=== PATIENT | male | born 1950 | race Two or more races ===

== ENCOUNTER 2016-10-17 11:10 | Emergency (ER) | payer MEDICARE, OTHER ==
[~2016-10-17] VITALS: Ht 167.6 cm; Wt 80.7 kg
[2016-10-17] MEDS ORDERED: cloNIDine HCL 0.1 MG TAB PO ONE (12:00)
[2016-10-17 12:17] LABS: Potassium 3.6 mmol/L (3.5-5.1)
[2016-10-17 12:20] LABS: Basophils # (auto) 0 uL; Basophils % (auto) 0.3 % (0.0-2.0); Eosinophils # (auto) 0.1 uL; Eosinophils % (auto) 1.2 % (0.0-7.0); Hematocrit 47.7 % (41.0-53.0); Hemoglobin 15.2 g/dL (13.5-17.5); Lymphocytes # (auto) 2.4 uL; Lymphocytes % (auto) 23.2 % (10.0-50.0); Mean Corpuscular Hemoglobin 28.6 pg (28.0-32.0); Mean Corpuscular Hgb Conc. 31.8 g/dL (32.0-36.0); Mean Corpuscular Volume 89.9 fL (80.0-100.0); Mean Platelet Volume 7.2 fL (7.4-10.4); Monocytes # (auto) 0.6 uL; Neutrophils # (auto) 7.1 uL; Neutrophils % (auto) 69.3 % (37.0-80.0); Platelet Count (auto) 330 10^3/uL (140-450); White Blood Cell 10.3 10^3/uL (4.4-10.8)
[2016-10-17 12:21] LABS: Albumin 3.9 g/dL (3.4-5.0); BUN/Creatinine Ratio 19.2; Calcium 8.7 mg/dL (8.5-10.1)
[2016-10-17 12:24] LABS: Bilirubin, Total 0.5 mg/dL (0.2-1.0); Total Protein 7.9 g/dL (6.4-8.2)
[2016-10-17 12:49] LABS: INR 1.08 (0.9-1.15); Partial Thromboplastin Time 25.7 sec (22.64-33.71); Prothrombin Time 11.1 sec (9.37-12.3)
[2016-10-17 13:42] VITALS: BP 138/80
== END 2016-10-17 15:11 | disposition home or self-care (01) ==
LOC: ER 11:10
DX: I16.0 Hypertensive urgency (principal); J45.909 Unspecified asthma, uncomplicated; E11.9 Type 2 diabetes mellitus without complications; K21.9 Gastro-esophageal reflux disease without esophagitis; M10.9 Gout, unspecified; E78.5 Hyperlipidemia, unspecified; I10 Essential (primary) hypertension; I25.2 Old myocardial infarction
CPT/HCPCS: 36415; 70450; 71010; 80053; 83735; 84484; 85025; 85610; 85730; 93005; 94761; 99285; J7030

== ENCOUNTER 2019-12-25 08:25 | Emergency (ER) | payer MEDICARE ==
[~2019-12-25] VITALS: Ht 167.6 cm; Wt 81.6 kg
[2019-12-25] MEDS ORDERED: methylPREDNISolone SOD SUCC 125 MG/2 ML VL IV ONE (09:00)
[2019-12-25] MEDS ORDERED: IPRATROPIUM BROM 0.5 MG/2.5ML INH SOL NEB ONE (09:00)
[2019-12-25] MEDS ORDERED: cloNIDine HCL 0.1 MG TAB PO ONE (09:00)
[2019-12-25] MEDS ORDERED: ALBUTEROL SULF 2.5 MG/0.5ML(0.5%) NEB SOLN NEB ONE (09:00)
[2019-12-25 09:06] LABS: Basophils # (auto) 0.1 10 ^3/uL (0-0.2); Basophils % (auto) 0.8 % (0.0-2.0); Eosinophils # (auto) 0.3 10 ^3/uL (0-0.8); Eosinophils % (auto) 4.5 % (0.0-7.0); Hematocrit 41.5 % (41.0-53.0); Lymphocytes % (auto) 25.7 % (10.0-50.0); Mean Corpuscular Hgb Conc. 33.8 g/dL (32.0-36.0); Mean Corpuscular Volume 88.7 fL (80.0-100.0); Monocytes # (auto) 0.5 10 ^3/uL (0-1.3); Monocytes % (auto) 6.7 % (0.0-12.0); Neutrophils # (auto) 4.8 10 ^3/uL (1.6-8.6); Neutrophils % (auto) 62.3 % (37.0-80.0); Nucleated Red Blood Cells % 0.1 %; Platelet Count (auto) 260 10^3/uL (140-450); Red Blood Cells 4.68 10^6/uL (4.5-5.90); Red Cell Distribution Width 13.3 % (11.8-14.3); White Blood Cell 7.6 10^3/uL (4.4-10.8)
[2019-12-25 09:21] LABS: Albumin 3.5 g/dL (3.4-5.0); Anion Gap 9 (5-15); Blood Urea Nitrogen 14 mg/dL (7-18); Calcium 8.7 mg/dL (8.5-10.1); Carbon Dioxide 27 mmol/L (21-32); Chloride 106 mmol/L (98-107); Glucose 171 mg/dL (74-106); Potassium 3.6 mmol/L (3.5-5.1); Sodium 142 mmol/L (136-145)
[2019-12-25 09:26] LABS: Alanine Aminotransferase 15 U/L (16-61); Alkaline Phosphatase 71 U/L (45-117); Aspartate Aminotransferase 11 U/L (15-37); BUN/Creatinine Ratio 13.9; Bilirubin, Total 0.4 mg/dL (0.2-1.0); GFR African American 94 mL/min; GFR Non-African American 78 mL/min; Total Protein 7.1 g/dL (6.4-8.2)
[2019-12-25] MEDS ORDERED: hydrALAZINE HCL 20 MG/ML VL ONE (09:33)
[2019-12-25] MEDS ORDERED: hydrALAZINE HCL 20 MG/ML VL IV ONE (09:45)
[2019-12-25 10:59] VITALS: BP 166/93
== END 2019-12-25 11:18 | disposition home or self-care (01) ==
LOC: ER 08:25
DX: H11.32 Conjunctival hemorrhage, left eye (principal); H05.012 Cellulitis of left orbit; J45.901 Unspecified asthma with (acute) exacerbation; I16.0 Hypertensive urgency; I25.10 Atherosclerotic heart disease of native coronary artery without angina pectoris; E11.9 Type 2 diabetes mellitus without complications; K21.9 Gastro-esophageal reflux disease without esophagitis; M10.9 Gout, unspecified; E78.5 Hyperlipidemia, unspecified; I10 Essential (primary) hypertension
CPT/HCPCS: 36415; 70486; 71045; 80053; 84484; 85025; 93005; 94640; 96374; 96375; 99285; J0360; J2930; J7644

== ENCOUNTER 2020-05-06 11:40 | Emergency (ER) | payer MEDICARE ==
[~2020-05-06] VITALS: Ht 167.6 cm; Wt 77.1 kg
[2020-05-06 11:45] VITALS: BP 136/82
[2020-05-06 12:47] LABS: Basophils # (auto) 0 10 ^3/uL (0-0.2); Basophils % (auto) 0.3 % (0.0-2.0); Eosinophils # (auto) 0.1 10 ^3/uL (0-0.8); Eosinophils % (auto) 0.6 % (0.0-7.0); Hematocrit 42.5 % (41.0-53.0); Hemoglobin 14.2 g/dL (13.5-17.5); Lymphocytes # (auto) 1.7 10 ^3/uL (0.4-5.4); Lymphocytes % (auto) 18.8 % (10.0-50.0); Mean Corpuscular Hgb Conc. 33.4 g/dL (32.0-36.0); Mean Corpuscular Volume 89.8 fL (80.0-100.0); Monocytes # (auto) 0.4 10 ^3/uL (0-1.3); Monocytes % (auto) 4.5 % (0.0-12.0); Neutrophils # (auto) 6.9 10 ^3/uL (1.6-8.6); Neutrophils % (auto) 75.8 % (37.0-80.0); Platelet Count (auto) 260 10^3/uL (140-450); Red Blood Cells 4.73 10^6/uL (4.5-5.90); Red Cell Distribution Width 13.6 % (11.8-14.3)
[2020-05-06 13:04] LABS: Alanine Aminotransferase 18 U/L (16-61); Albumin 3.7 g/dL (3.4-5.0); Anion Gap 5 (5-15); Aspartate Aminotransferase 8 U/L (15-37); BUN/Creatinine Ratio 12.9; Blood Urea Nitrogen 12 mg/dL (7-18); Calcium 8.9 mg/dL (8.5-10.1); Carbon Dioxide 27 mmol/L (21-32); Chloride 106 mmol/L (98-107); GFR African American 104 mL/min; GFR Non-African American 86 mL/min; Glucose 183 mg/dL (74-106); Potassium 3.9 mmol/L (3.5-5.1); Sodium 138 mmol/L (136-145)
[2020-05-06 13:10] LABS: Alkaline Phosphatase 78 U/L (45-117); Bilirubin, Total 0.6 mg/dL (0.2-1.0); Total Protein 7.5 g/dL (6.4-8.2)
== END 2020-05-06 17:00 | disposition left against medical advice (07) ==
LOC: ER 11:40
DX: R10.13 Epigastric pain (principal); Z53.21 Procedure and treatment not carried out due to patient leaving prior to being seen by health care provider
CPT/HCPCS: 36415; 80053; 84484; 85025; 93005

== ENCOUNTER 2020-05-10 16:22 | Inpatient (IN) | payer MEDICARE ==
[~2020-05-10] VITALS: Ht 167.6 cm; Wt 75.3 kg
[2020-05-10] MEDS ORDERED: ONDANSETRON HCL 4 MG/2 ML VIAL IV ONE ×2 (17:15→20:15)
[2020-05-10] MEDS ORDERED: NITROGLYCERIN 0.4 MG SL TAB SL ONE (17:15)
[2020-05-10] MEDS ORDERED: MORPHINE SULF INJ 2 MG/ML SYRINGE 1ML IV ONE (17:15)
[2020-05-10 18:21] LABS: Alanine Aminotransferase 18 U/L (16-61); Albumin 3.1 g/dL (3.4-5.0); Anion Gap 6 (5-15); Aspartate Aminotransferase 11 U/L (15-37); BUN/Creatinine Ratio 15.2; Blood Urea Nitrogen 12 mg/dL (7-18); Calcium 7.3 mg/dL (8.5-10.1); Carbon Dioxide 23 mmol/L (21-32); Chloride 112 mmol/L (98-107); GFR African American 125 mL/min; GFR Non-African American 103 mL/min; Glucose 168 mg/dL (74-106); Magnesium 1.9 mg/dL (1.6-2.6); Potassium 3.2 mmol/L (3.5-5.1); Sodium 141 mmol/L (136-145)
[2020-05-10 18:26] LABS: Alkaline Phosphatase 68 U/L (45-117); Bilirubin, Total 0.5 mg/dL (0.2-1.0); Total Protein 6.3 g/dL (6.4-8.2)
[2020-05-10 18:34] LABS: INR 1.05 (0.9-1.15); Partial Thromboplastin Time 25.6 sec (23.0-31.2)
[2020-05-10 18:35] LABS: Basophils # (auto) 0 10 ^3/uL (0-0.2); Basophils % (auto) 0.6 % (0.0-2.0); Eosinophils # (auto) 0.1 10 ^3/uL (0-0.8); Eosinophils % (auto) 1.2 % (0.0-7.0); Hematocrit 42.4 % (41.0-53.0); Hemoglobin 14.5 g/dL (13.5-17.5); Lymphocytes # (auto) 2.1 10 ^3/uL (0.4-5.4); Lymphocytes % (auto) 26.5 % (10.0-50.0); Mean Corpuscular Hemoglobin 30.7 pg (28.0-32.0); Mean Corpuscular Hgb Conc. 34.1 g/dL (32.0-36.0); Mean Corpuscular Volume 90.1 fL (80.0-100.0); Monocytes # (auto) 0.6 10 ^3/uL (0-1.3); Monocytes % (auto) 7.2 % (0.0-12.0); Neutrophils # (auto) 5.2 10 ^3/uL (1.6-8.6); Neutrophils % (auto) 64.5 % (37.0-80.0); Nucleated Red Blood Cells % 0.1 %; Platelet Count (auto) 257 10^3/uL (140-450); Red Blood Cells 4.71 10^6/uL (4.5-5.90); Red Cell Distribution Width 13.5 % (11.8-14.3)
[2020-05-10] MEDS ORDERED: MORPHINE SULFATE 4 MG/ML SYR/VIAL IV ONE (20:15)
[2020-05-10] MEDS ORDERED: POTASSIUM CHL 20 Meq TABLET PO ONE (20:15)
[2020-05-10] MEDS ORDERED: cloNIDine HCL 0.1 MG TAB PO ONE (20:15)
[2020-05-10] MEDS ORDERED: MORPHINE SULF INJ 2 MG/ML SYRINGE 1ML IV PRN (21:00)
[2020-05-10] MEDS ORDERED: DEXTROSE (50%) 50ML SYRG IV PRN (21:00)
[2020-05-10] MEDS ORDERED: NITROGLYCERIN 0.4 MG SL TAB SL PRN (21:00)
[2020-05-10] MEDS: NIFEdipine ER 30 MG TAB PO SCH (21:46)
[2020-05-10] MEDS: CARVEDILOL 3.125 MG TAB PO SCH (22:00)
[2020-05-10 22:33] LABS: Urine Bacteria FEW /hpf (None Seen); Urine Blood Negative /uL (Negative); Urine Mucus FEW (None Seen); Urine Specific Gravity 1.012 (1.001-1.035); Urine WBC <1 /hpf (0 - 3)
[2020-05-10 23:33] VITALS: BP 151/87
--- NOTE | 2020-05-10 23:33 | NUR ---
Telemetry admit from ER DULCE QUINTEROS admitted to Telemetry unit. Patient oriented to CORDELL PABLO RN primary RN, unit, room, bed, and unit policies regarding patient care and visiting hours. Patient now on continuous telemetry monitoring, tele box #[id number] and telemetry reading on arrival to unit is Sinus Jacob. Patient placed on bedside oxygen, weighed by bedscale and encouraged to call if they need something. All questions and concerns addressed, patient verbalized understanding.
[2020-05-11] MEDS: ATORVASTATIN 20 MG TAB PO SCH ×2 (00:15→21:35)
[2020-05-11] MEDS: ACCU-CHEK COMFORT CURVE STRIP VI SCH ×7 (00:15→23:45)
[2020-05-11] MEDS ORDERED: ALLO300T2 PO (00:23)
[2020-05-11] MEDS ORDERED: HYDR-4833 PO (00:23)
[2020-05-11] MEDS ORDERED: PRAV20TA3 PO (00:23)
[2020-05-11] MEDS ORDERED: INSLANTI SC (00:23)
[2020-05-11] MEDS ORDERED: ASPI-543 PO (00:23)
[2020-05-11] MEDS ORDERED: MONT10TA34 PO (00:23)
[2020-05-11] MEDS ORDERED: PANT40TA2 PO (00:23)
[2020-05-11] MEDS ORDERED: CAR125T OR (00:23)
[2020-05-11] MEDS: ACETAMINOPHEN 325 MG TAB PO PRN (02:19)
--- NOTE | 2020-05-11 02:20 | NUR ---
PATIENT C/O HEADACHE @ 01/21, MEDICATED PATIENT ORDERED.
[2020-05-11] MEDS: InsuLIN REG 1unit/0.01ml Soln (100units/ml) SC SCH ×7 (04:00→23:45)
[2020-05-11 05:00] VITALS: BP 164/83
--- NOTE | 2020-05-11 05:29 | NUR ---
Called/paged Dr. Enriquez called re: High Blood pressure . Waiting for call back. Continue care.
--- NOTE | 2020-05-11 06:02 | NUR ---
Re-Called/paged Dr. Enriquez re-called re: high blood pressure. Waiting for call back. Continue care.
[2020-05-11] MEDS: ONDANSETRON HCL 4 MG/2 ML VIAL IV PRN (06:26)
--- NOTE | 2020-05-11 06:32 | NUR ---
returned call Dr. Enriquez returned call, updated on patient status and reason for call, No new orders. Continue care.
[2020-05-11 07:13] LABS: Basophils # (auto) 0.1 10 ^3/uL (0-0.2); Basophils % (auto) 0.7 % (0.0-2.0); Eosinophils # (auto) 0.2 10 ^3/uL (0-0.8); Eosinophils % (auto) 1.7 % (0.0-7.0); Hemoglobin 15.9 g/dL (13.5-17.5); Lymphocytes # (auto) 1.9 10 ^3/uL (0.4-5.4); Lymphocytes % (auto) 20.7 % (10.0-50.0); Mean Corpuscular Hemoglobin 30.3 pg (28.0-32.0); Mean Corpuscular Hgb Conc. 33.8 g/dL (32.0-36.0); Mean Corpuscular Volume 89.9 fL (80.0-100.0); Monocytes # (auto) 0.7 10 ^3/uL (0-1.3); Monocytes % (auto) 7.1 % (0.0-12.0); Neutrophils # (auto) 6.4 10 ^3/uL (1.6-8.6); Neutrophils % (auto) 69.8 % (37.0-80.0); Platelet Count (auto) 268 10^3/uL (140-450); Red Blood Cells 5.23 10^6/uL (4.5-5.90); Red Cell Distribution Width 13.8 % (11.8-14.3); White Blood Cell 9.2 10^3/uL (4.4-10.8)
[2020-05-11 07:21] LABS: Potassium 3.6 mmol/L (3.5-5.1)
[2020-05-11 07:29] LABS: BUN/Creatinine Ratio 10.5; Calcium 8.7 mg/dL (8.5-10.1)
--- NOTE | 2020-05-11 07:30 | NUR ---
Opening Shift Note Assuming care of patient at this time. Patient is awake and alert. Patient shows no signs or symptoms of distress or shortness of breath. Bed is locked and lowered with side rails up x2. Instructed patient on the plan of care for today and to call for assistance as needed. Call light within reach. Will continue to round hourly and as needed.
[2020-05-11] MEDS: CARVEDILOL 3.125 MG TAB PO SCH (08:41)
[2020-05-11] MEDS: CLOPIDOGREL BISULFATE 75 MG TAB PO SCH (08:42)
[2020-05-11] MEDS: NIFEdipine ER 30 MG TAB PO SCH (08:43)
[2020-05-11] MEDS: LISINOPRIL 20 MG TAB PO SCH (08:44)
[2020-05-11] MEDS: ASPirin 81 mg TAB PO SCH (08:45)
[2020-05-11] MEDS: DOCUSATE SOD 100 MG CAP PO SCH (08:46)
[2020-05-11 09:00] VITALS: BP 179/91
[2020-05-11] MEDS ORDERED: PANTOPRAZOLE 40 MG TAB PO SCH ×2 (11:09→22:00)
[2020-05-11] MEDS: cloNIDine HCL 0.1 MG TAB PO PRN (13:18)
--- NOTE | 2020-05-11 13:20 | NUR ---
Cardio Consult Cardio Consult done at this time by Lilli Go NP.
[2020-05-11 14:00] VITALS: BP 162/99
[2020-05-11 17:00] VITALS: BP 127/94
[2020-05-11] MEDS ORDERED: SUCRALFATE 1 GM/10 ML ORAL SUSP PO SCH (17:00)
--- NOTE | 2020-05-11 17:30 | NUR ---
Stress Test Patient had part one of stress test today.
[2020-05-11] MEDS: SUCRALFATE 1 GM/10 ML ORAL SUSP PO SCH ×2 (17:49→20:34)
--- NOTE | 2020-05-11 18:57 | NUR ---
Closing Shift Note Patient resting in bed. No distress noted. Will endorse care to the awake overnight monitor RN.
--- NOTE | 2020-05-11 19:40 | NUR ---
Opening Shift Note Assumed care of patient, awake and alert. No S/S of distress/SOB or pain. Instructed on POC and to call for assist PRN. Bed in lowest locked position, call light within reach, side rails up x2. Will continue to monitor for changes Q1hr and PRN.
[2020-05-11] MEDS: PANTOPRAZOLE 40 MG TAB PO SCH (20:34)
[2020-05-11 21:58] VITALS: BP 135/91
--- NOTE | 2020-05-12 00:38 | NUR ---
Endorsed care Care endorsed to Sylvia EDUARDO.
--- NOTE | 2020-05-12 00:45 | NUR ---
Assumed care of pt Pt is sleeping in bed, 2L NC in place, with even and unlabored respirations. Will continue to monitor Q1Hr and PRN
[2020-05-12] MEDS: InsuLIN REG 1unit/0.01ml Soln (100units/ml) SC SCH ×6 (04:00→23:40)
[2020-05-12] MEDS: ACCU-CHEK COMFORT CURVE STRIP VI SCH ×6 (04:08→23:39)
[2020-05-12] MEDS: ACETAMINOPHEN 325 MG TAB PO PRN ×3 (04:08→17:25)
[2020-05-12 04:49] VITALS: BP 157/100
[2020-05-12] MEDS: SUCRALFATE 1 GM/10 ML ORAL SUSP PO SCH ×4 (06:21→20:44)
--- NOTE | 2020-05-12 07:30 | NUR ---
Opening Shift Note Assumed care of patient, awake, alert, and oriented. No S/S of distress/SOB or pain. Bed in lowest/locked position, bed rails up x2, call light within reach. Instructed on POC and to call for assist PRN. Will continue to monitor for changes Q1hr and PRN.
[2020-05-12 09:00] VITALS: BP 155/97
[2020-05-12] MEDS: NIFEdipine ER 30 MG TAB PO SCH (10:11)
[2020-05-12] MEDS: PANTOPRAZOLE 40 MG TAB PO SCH ×2 (10:12→20:44)
[2020-05-12] MEDS: ASPirin 81 mg TAB PO SCH (10:12)
[2020-05-12] MEDS: ISOSORBIDE MONONITRATE ER 60 MG TAB PO SCH (10:12)
[2020-05-12] MEDS: CLOPIDOGREL BISULFATE 75 MG TAB PO SCH (10:12)
[2020-05-12] MEDS: DOCUSATE SOD 100 MG CAP PO SCH (10:12)
[2020-05-12] MEDS: LISINOPRIL 20 MG TAB PO SCH (10:13)
[2020-05-12 12:42] VITALS: BP 139/91
[2020-05-12] MEDS ORDERED: ALUM & MAG HYDROX-SIMETH LIQ(MAALOX) 30 ML PO ONE (14:45)
--- NOTE | 2020-05-12 16:03 | NUR ---
REPORT ENDORSED CARE TO ALESHA SAXENA
[2020-05-12 17:00] VITALS: BP 131/92
--- NOTE | 2020-05-12 18:51 | NUR ---
CARE ENDORSED TO NOC RN.
[2020-05-12 20:00] VITALS: BP 146/93
[2020-05-12] MEDS: ATORVASTATIN 20 MG TAB PO SCH (20:44)
--- NOTE | 2020-05-12 22:10 | NUR ---
MD Called/paged Patient complains of headache 06/23 and states tylenol has not helped. Hospitalist paged, Waiting for call back. Continue care.
[2020-05-12] MEDS ORDERED: PROPRANOLOL HCL 20 MG TAB PO ONE (22:15)
--- NOTE | 2020-05-12 22:20 | NUR ---
HOSPITALIST Dr. Cesario Enriquez returned call, updated on patient status and reason for call, orders received. Will note new orders and continue to monitor
[2020-05-12 22:47] VITALS: BP 146/93
[2020-05-13] MEDS: ACETAMINOPHEN 325 MG TAB PO PRN (00:59)
[2020-05-13] MEDS: ONDANSETRON HCL 4 MG/2 ML VIAL IV PRN (01:00)
[2020-05-13] MEDS: ACCU-CHEK COMFORT CURVE STRIP VI SCH ×5 (03:55→20:03)
[2020-05-13] MEDS: InsuLIN REG 1unit/0.01ml Soln (100units/ml) SC SCH ×5 (03:56→20:18)
[2020-05-13] MEDS: cloNIDine HCL 0.1 MG TAB PO PRN (04:23)
--- NOTE | 2020-05-13 04:23 | NUR ---
Patient states he "doesn't feel well" and states that he thinks it is because he stopped taking his home medication Oxcarbazepine. Patient states this is the medication he takes for the "zaps" that he feels but could not explain furthur what "zaps" are and can not remember. Patient states that he stopped taking this medication at home because he was feeling better but verbalizes that he would like to start taking it again and thinks this is why he does not feel well. Will update med rec with medication and dosage given by patient.
[2020-05-13] MEDS ORDERED: OXCA600T3 PO (04:29)
[2020-05-13 05:22] VITALS: BP 154/93
[2020-05-13] MEDS: SUCRALFATE 1 GM/10 ML ORAL SUSP PO SCH ×4 (06:22→22:09)
--- NOTE | 2020-05-13 08:10 | NUR ---
MD ROUNDS DR Leonardo ALVAERZ AT BEDSIDE DISCUSSING POC WITH PATIENT. NEW ORDERS RECEIVED/WILL CARRY OUT. WILL CONTINUE TO MONITOR
[2020-05-13] MEDS: PANTOPRAZOLE 40 MG TAB PO SCH ×2 (08:50→22:10)
[2020-05-13] MEDS: ASPirin 81 mg TAB PO SCH (08:50)
[2020-05-13] MEDS: OXcarbazepine 300 MG TAB PO SCH (08:51)
[2020-05-13] MEDS: CLOPIDOGREL BISULFATE 75 MG TAB PO SCH (08:51)
[2020-05-13] MEDS: NIFEdipine ER 30 MG TAB PO SCH (08:51)
[2020-05-13] MEDS: DOCUSATE SOD 100 MG CAP PO SCH (08:51)
[2020-05-13] MEDS: LISINOPRIL 20 MG TAB PO SCH (08:52)
[2020-05-13] MEDS: ISOSORBIDE MONONITRATE ER 60 MG TAB PO SCH (08:52)
[2020-05-13 09:00] VITALS: BP 136/82
[2020-05-13] MEDS: HYDROcodone-ACET 7.5/325MG TAB PO PRN ×2 (12:15→18:42)
[2020-05-13 13:00] VITALS: BP 134/81
[2020-05-13 17:15] VITALS: BP 120/79
--- NOTE | 2020-05-13 17:29 | NUR ---
IV insertion IV access obtained, via clean sterile technique by inserting 22 gauge catheter at RIGHT HAND after 1 attempt. IV secured properly. No trauma to site. Patient tolerated well.
--- NOTE | 2020-05-13 19:15 | NUR ---
OPENING SHIFT NOTE: Assumed care of patient. Patient awake, alert and oriented x 4. NO s/s of SOB or distress. Bed in lowest locked position with two side rails raised and call orozco within reach. Instructed on POC and encouraged to call for assistance, all questions and concerns addressed, patient verbalizes understanding. Will continue to monitor Q1 hr and PRN.
[2020-05-13 22:00] VITALS: BP 124/92
[2020-05-13] MEDS: ATORVASTATIN 20 MG TAB PO SCH (22:09)
[2020-05-14] MEDS: InsuLIN REG 1unit/0.01ml Soln (100units/ml) SC SCH ×6 (04:00→20:52)
--- NOTE | 2020-05-14 04:00 | NUR ---
Accu check Insulin held, patient is NPO for stress test.
[2020-05-14] MEDS: ACCU-CHEK COMFORT CURVE STRIP VI SCH ×6 (04:26→20:44)
[2020-05-14 05:00] VITALS: BP 137/79
[2020-05-14] MEDS: SUCRALFATE 1 GM/10 ML ORAL SUSP PO SCH ×4 (06:46→22:37)
[2020-05-14] MEDS ORDERED: ADENOSINE 65 MG in GIVE UN-DILUTED 0 ML IV STA (08:00)
--- NOTE | 2020-05-14 08:10 | NUR ---
Accu chek Insulin held, patient is NPO for stress test.
[2020-05-14] MEDS: ACETAMINOPHEN 325 MG TAB PO PRN (08:23)
[2020-05-14 09:28] VITALS: BP 151/94
--- NOTE | 2020-05-14 10:04 | NUR ---
1000 05/14/20 I received a message from [employer] Callum [phone] asking if patient is stable for transfer back into network ([facility]). I spoke with Dr. Leonardo Trujillo, he said patient not stable today for transfer back in network-stress test/EGD pending. I called SCAN manager rn case Callum and left her a message letting her know.
[2020-05-14 11:12] LABS: Potassium 3.9 mmol/L (3.5-5.1)
[2020-05-14 11:35] LABS: BUN/Creatinine Ratio 15.6; Calcium 8.8 mg/dL (8.5-10.1)
[2020-05-14 11:48] VITALS: BP 164/107
--- NOTE | 2020-05-14 11:50 | NUR ---
Off Unit Patient off unit for stress test.
--- NOTE | 2020-05-14 12:29 | NUR ---
Nutrition Assessment Notes Please refer to link for full assessment notes. Est Energy needs: [id number] kcals (20-23 kcal/kgBW) Est Protein needs: 78-86 gms/day (1.0-1.1 gm/kgBW) Will continue to monitor and reassess prn. Addendum: 05/14/20 at [address] Amended: Links added.
[2020-05-14] MEDS: PANTOPRAZOLE 40 MG TAB PO SCH ×2 (12:52→22:37)
[2020-05-14] MEDS: DOCUSATE SOD 100 MG CAP PO SCH (12:53)
[2020-05-14] MEDS: OXcarbazepine 300 MG TAB PO SCH (12:53)
[2020-05-14] MEDS: CLOPIDOGREL BISULFATE 75 MG TAB PO SCH (12:53)
[2020-05-14] MEDS: ASPirin 81 mg TAB PO SCH (12:53)
[2020-05-14] MEDS: LISINOPRIL 20 MG TAB PO SCH (12:55)
[2020-05-14] MEDS: ISOSORBIDE MONONITRATE ER 60 MG TAB PO SCH (12:55)
[2020-05-14] MEDS: NIFEdipine ER 30 MG TAB PO SCH (12:56)
[2020-05-14 13:00] VITALS: BP 156/98
[2020-05-14] MEDS: HYDROcodone-ACET 7.5/325MG TAB PO PRN ×2 (13:27→20:44)
--- NOTE | 2020-05-14 13:27 | NUR ---
Pain Patient complained of headache level 6/10. Medicated with [place] as ordered. Will reassess as per protocol.
--- NOTE | 2020-05-14 16:00 | NUR ---
Bladder scan pending Attempted bladder scan, machine need replacement battery. Charge nurse is aware.
[2020-05-14 16:26] VITALS: BP 137/98
--- NOTE | 2020-05-14 19:18 | NUR ---
OPENING SHIFT NOTE: Assumed care of patient. Patient awake, alert and oriented x 4, no s/s of SOB or distress, patient complains of a headache 03/23, will medicate for pain PRN per EMAR. Bed in lowest locked position with two side rails raised and call orozco within reach. Instructed on POC and encouraged to call for assistance, all questions and concerns addressed, patient verbalizes understanding. Will continue to monitor Q1 hr and PRN.
[2020-05-14 20:15] LABS: Urine WBC None Seen /hpf (0 - 3)
[2020-05-14 20:38] LABS: Urine Bacteria NONE SEEN /hpf (None Seen); Urine Blood TRACE /uL (Negative); Urine Hyaline Cast FEW /lpf (0 - 2); Urine Mucus FEW (None Seen); Urine Specific Gravity 1.024 (1.001-1.035)
[2020-05-14] MEDS: ATORVASTATIN 20 MG TAB PO SCH ×2 (22:00→22:37)
[2020-05-14 22:25] VITALS: BP 150/88
--- NOTE | 2020-05-14 22:30 | NUR ---
Bladder scan showing 20 ml in bladder, strip printed and placed in hard chart.
[2020-05-15] MEDS: InsuLIN REG 1unit/0.01ml Soln (100units/ml) SC SCH ×7 (04:00→23:43)
[2020-05-15] MEDS: ACCU-CHEK COMFORT CURVE STRIP VI SCH ×7 (04:05→23:43)
[2020-05-15] MEDS: HYDROcodone-ACET 7.5/325MG TAB PO PRN ×3 (05:00→22:19)
[2020-05-15 05:23] VITALS: BP 157/110
[2020-05-15] MEDS: cloNIDine HCL 0.1 MG TAB PO PRN (06:16)
[2020-05-15] MEDS: SUCRALFATE 1 GM/10 ML ORAL SUSP PO SCH ×4 (06:16→21:23)
[2020-05-15 09:00] VITALS: BP 125/96
[2020-05-15] MEDS: DOCUSATE SOD 100 MG CAP PO SCH (09:52)
[2020-05-15] MEDS: ISOSORBIDE MONONITRATE ER 60 MG TAB PO SCH (09:53)
[2020-05-15] MEDS: CLOPIDOGREL BISULFATE 75 MG TAB PO SCH (09:53)
[2020-05-15] MEDS: ASPirin 81 mg TAB PO SCH (09:53)
[2020-05-15] MEDS: OXcarbazepine 300 MG TAB PO SCH (09:55)
[2020-05-15] MEDS: NIFEdipine ER 30 MG TAB PO SCH (09:55)
[2020-05-15] MEDS: PANTOPRAZOLE 40 MG TAB PO SCH ×2 (09:56→21:23)
[2020-05-15] MEDS: LISINOPRIL 20 MG TAB PO SCH (09:56)
[2020-05-15 13:00] VITALS: BP 135/84
[2020-05-15] MEDS: ONDANSETRON HCL 4 MG/2 ML VIAL IV PRN (14:15)
[2020-05-15 17:09] VITALS: BP 147/85
[2020-05-15] MEDS: hydrALAZINE HCL 10 MG TAB PO SCH ×2 (19:01→23:44)
[2020-05-15] MEDS: ATORVASTATIN 20 MG TAB PO SCH (21:23)
[2020-05-15 22:00] VITALS: BP 125/90
[2020-05-16] MEDS: InsuLIN REG 1unit/0.01ml Soln (100units/ml) SC SCH ×6 (04:00→23:56)
[2020-05-16] MEDS: ACCU-CHEK COMFORT CURVE STRIP VI SCH ×6 (04:02→23:54)
[2020-05-16 05:00] VITALS: BP 137/97
[2020-05-16 05:51] LABS: Basophils # (auto) 0.1 10 ^3/uL (0-0.2); Basophils % (auto) 0.7 % (0.0-2.0); Eosinophils # (auto) 0.6 10 ^3/uL (0-0.8); Eosinophils % (auto) 5.9 % (0.0-7.0); Hematocrit 47.3 % (41.0-53.0); Hemoglobin 16.1 g/dL (13.5-17.5); Lymphocytes # (auto) 2.4 10 ^3/uL (0.4-5.4); Lymphocytes % (auto) 21.7 % (10.0-50.0); Mean Corpuscular Hemoglobin 30.5 pg (28.0-32.0); Mean Corpuscular Volume 89.6 fL (80.0-100.0); Monocytes # (auto) 0.9 10 ^3/uL (0-1.3); Monocytes % (auto) 8.1 % (0.0-12.0); Neutrophils % (auto) 63.6 % (37.0-80.0); Nucleated Red Blood Cells % 0.1 %; Platelet Count (auto) 289 10^3/uL (140-450); Red Blood Cells 5.28 10^6/uL (4.5-5.90); Red Cell Distribution Width 13.3 % (11.8-14.3); White Blood Cell 10.9 10^3/uL (4.4-10.8)
[2020-05-16 06:10] LABS: INR 0.99 (0.9-1.15); Partial Thromboplastin Time 25.4 sec (23.0-31.2)
[2020-05-16 06:12] LABS: BUN/Creatinine Ratio 21.3; Calcium 8.8 mg/dL (8.5-10.1); Potassium 3.7 mmol/L (3.5-5.1)
[2020-05-16] MEDS: SUCRALFATE 1 GM/10 ML ORAL SUSP PO SCH ×4 (06:23→21:46)
[2020-05-16] MEDS: hydrALAZINE HCL 10 MG TAB PO SCH ×4 (06:23→23:54)
[2020-05-16] MEDS: ASPirin 81 mg TAB PO SCH (10:35)
[2020-05-16] MEDS: DOCUSATE SOD 100 MG CAP PO SCH (10:35)
[2020-05-16] MEDS: PANTOPRAZOLE 40 MG TAB PO SCH ×2 (10:36→21:46)
[2020-05-16] MEDS: LISINOPRIL 20 MG TAB PO SCH (10:37)
[2020-05-16] MEDS: ISOSORBIDE MONONITRATE ER 60 MG TAB PO SCH (11:00)
[2020-05-16] MEDS: NIFEdipine ER 30 MG TAB PO SCH (11:00)
[2020-05-16] MEDS: CLOPIDOGREL BISULFATE 75 MG TAB PO SCH (12:11)
[2020-05-16] MEDS: OXcarbazepine 300 MG TAB PO SCH (12:12)
[2020-05-16] MEDS ORDERED: LIDOCAINE VISCOUS 2% 15ML UD ONE (12:41)
[2020-05-16] MEDS ORDERED: diphenhdrAMINE HCL 50 MG/1 ML VL ONE (12:42)
[2020-05-16 13:00] VITALS: BP 142/90
[2020-05-16] MEDS: MIDAZOLAM HCL 5 MG/ML-1ML VIAL ONE ×2 (13:05→13:08)
[2020-05-16] MEDS: fentaNYL CITRATE 100 MCG/2 ML VL ONE ×2 (13:05→13:08)
--- NOTE | 2020-05-16 13:41 | NUR ---
PT HAS BEEN TAKEN TO GI LAB FOR EGD WITH DAVID. RECEIVED REPORT FROM RECOVERY. POLYP REMOVED. BIOPSY TAKEN. HIATAL HERNIA NOTED. FULLY AWAKE NOW. V/S STABLE.
[2020-05-16 17:00] VITALS: BP 129/91
--- NOTE | 2020-05-16 18:28 | NUR ---
FSBS COVERED WITH SLIDING SCALE INSULIN. WARM BLANKET PROVIDED. DENIES DISCOMFORT OR GI UPSET.
[2020-05-16] MEDS: HYDROcodone-ACET 7.5/325MG TAB PO PRN (19:54)
[2020-05-16] MEDS: ATORVASTATIN 20 MG TAB PO SCH (21:46)
[2020-05-16 22:08] VITALS: BP 138/87
[2020-05-17] MEDS: ACCU-CHEK COMFORT CURVE STRIP VI SCH ×4 (03:46→16:00)
[2020-05-17] MEDS: InsuLIN REG 1unit/0.01ml Soln (100units/ml) SC SCH ×4 (03:46→16:00)
[2020-05-17 05:48] VITALS: BP 140/102
[2020-05-17] MEDS: hydrALAZINE HCL 10 MG TAB PO SCH ×2 (06:23→12:00)
[2020-05-17] MEDS: SUCRALFATE 1 GM/10 ML ORAL SUSP PO SCH ×2 (06:24→13:01)
[2020-05-17] MEDS: ONDANSETRON HCL 4 MG/2 ML VIAL IV PRN ×2 (07:54→13:01)
[2020-05-17 08:00] VITALS: BP 139/106
--- NOTE | 2020-05-17 08:00 | NUR ---
Opening Shift Note Assumed care of patient, pt awake and alert sitting up in bed. Bed is in lowest locked position, side rails up, and call light is within reach. Patient is on RA with No S/S of distress/SOB. Instructed on POC and to call for assist PRN, will continue to monitor for changes Q1hr and PRN.
[2020-05-17 08:15] VITALS: BP 141/96
--- NOTE | 2020-05-17 09:20 | NUR ---
REPORT GIVEN REPORT GIVEN TO LIA EDUARDO, CARE ENDORSED.
--- NOTE | 2020-05-17 09:25 | NUR ---
Opening note Assumed care of patient from ALESHA Moreira. Patient AOx4 no s/s or SOB of distress noted. Bed is lowest locked position, call light is within reach, and side rails are up x2. Educated patient to call for help as needed, patient verbalized understanding. Updated patient on plan of care and patient verbalized understanding. Will continue to monitor q1hr and PRN.
[2020-05-17] MEDS ORDERED: ISOSORBIDE MONONITRATE ER 60 MG TAB PO SCH (10:00)
[2020-05-17] MEDS ORDERED: NIFEdipine ER 30 MG TAB PO SCH (10:00)
[2020-05-17] MEDS ORDERED: METOPROLOL TARTRATE 25 MG TAB PO SCH (10:00)
--- NOTE | 2020-05-17 10:00 | NUR ---
Physician rounding Dr. Trujillo at bedside. MD updated patient on plan of care and patient verbalized understanding. New order received, will follow through will continue to monitor.
[2020-05-17] MEDS: CLOPIDOGREL BISULFATE 75 MG TAB PO SCH (10:32)
[2020-05-17] MEDS: ASPirin 81 mg TAB PO SCH (10:32)
[2020-05-17] MEDS: OXcarbazepine 300 MG TAB PO SCH (10:32)
[2020-05-17] MEDS: DOCUSATE SOD 100 MG CAP PO SCH (10:32)
[2020-05-17] MEDS: PANTOPRAZOLE 40 MG TAB PO SCH (10:33)
[2020-05-17] MEDS: LISINOPRIL 20 MG TAB PO SCH (10:43)
--- NOTE | 2020-05-17 13:00 | NUR ---
Medication refusal Patient refused 1200 scheduled blood pressure medication.Patient stated "It made me really sweaty, and nauseous when I last took it. I do not want it." Educated patient on the risk of not taking medication and educated patient regarding right to refuse medication. Patient verbalized understanding. Will continue to monitor q1hr and PRN.
--- NOTE | 2020-05-17 14:00 | NUR ---
Provider rounding Nurse practitioner Donavan at bedside. [employer]IM[employer] Donavan updated patient on plan of care, patient verbalized understanding. Prescriptions were aquired for patient upon D/C. No new orders received. Will continue care
[2020-05-17 14:11] VITALS: BP 133/93
--- NOTE | 2020-05-17 14:42 | NUR ---
assessment Patient has no post discharge needs identified at this time. Addendum: 05/17/20 at 1443 by Genia MACKAY Amended: Links added.
--- NOTE | 2020-05-17 16:45 | NUR ---
Discharge note Discharge instructions given as ordered. Encourage to follow up with PMD as instructed. All questions and concerns addressed. Patient verbalized understanding. IV removed with catheter intact, pressure dressing applied. Telemetry unit returned to ICU. Patient ambulated to [facility] with all personal belongings, accompanied by staff member. No distress noted at time of departure.
== END 2020-05-17 16:45 | disposition home or self-care (01) | DRG 392 ==
LOC: ER 16:22 → EDBD 16:22 → TELE 16:23 → TELE-CENTR 23:33
PROVIDERS: ADMIT Hospitalist; ATTEND Family Medicine
PROC: 0DB88ZX Excision of Small Intestine, Via Natural or Artificial Opening Endoscopic, Diagnostic (ICD-10-PCS; 2020-05-16)
PROC: 0DB58ZX Excision of Esophagus, Via Natural or Artificial Opening Endoscopic, Diagnostic (ICD-10-PCS; 2020-05-16)
PROC: 0DB68ZX Excision of Stomach, Via Natural or Artificial Opening Endoscopic, Diagnostic (ICD-10-PCS; principal; 2020-05-16 12:58)
DX: K21.0 Gastro-esophageal reflux disease with esophagitis (principal); I16.1 Hypertensive emergency; E87.6 Hypokalemia; E11.65 Type 2 diabetes mellitus with hyperglycemia; Z95.1 Presence of aortocoronary bypass graft; Z79.02 Long term (current) use of antithrombotics/antiplatelets; N28.1 Cyst of kidney, acquired; N27.0 Small kidney, unilateral; N20.0 Calculus of kidney; N18.3 Chronic kidney disease, stage 3 (moderate); K29.70 Gastritis, unspecified, without bleeding; K76.0 Fatty (change of) liver, not elsewhere classified; K31.3 Pylorospasm, not elsewhere classified; K31.7 Polyp of stomach and duodenum; E11.22 Type 2 diabetes mellitus with diabetic chronic kidney disease; E11.40 Type 2 diabetes mellitus with diabetic neuropathy, unspecified; E78.00 Pure hypercholesterolemia, unspecified; E78.5 Hyperlipidemia, unspecified; I12.9 Hypertensive chronic kidney disease with stage 1 through stage 4 chronic kidney disease, or unspecified chronic kidney disease; J45.909 Unspecified asthma, uncomplicated; N40.0 Benign prostatic hyperplasia without lower urinary tract symptoms; E11.649 Type 2 diabetes mellitus with hypoglycemia without coma; I25.119 Atherosclerotic heart disease of native coronary artery with unspecified angina pectoris; K44.9 Diaphragmatic hernia without obstruction or gangrene; K25.9 Gastric ulcer, unspecified as acute or chronic, without hemorrhage or perforation; I25.2 Old myocardial infarction; Z90.5 Acquired absence of kidney; Z87.891 Personal history of nicotine dependence; Z87.442 Personal history of urinary calculi; Z87.19 Personal history of other diseases of the digestive system; Z83.3 Family history of diabetes mellitus; Z82.49 Family history of ischemic heart disease and other diseases of the circulatory system; Z79.899 Other long term (current) drug therapy; Z79.4 Long term (current) use of insulin
CPT/HCPCS: 36415; 43239; 71045; 74176; 76775; 78452; 80048; 80053; 80061; 81001; 82962; 83690; 83735; 83880; 84443; 84484; 85025; 85610; 85730; 93005; 93017; 93306; 93886; 93975; G0378; J0153; J1815; J2250; J2405

== ENCOUNTER 2021-03-15 11:08 | Emergency (ER) | payer BC, MEDICARE ==
[~2021-03-15] VITALS: Ht 167.6 cm; Wt 75.3 kg
[~2021-03-15 11:08] MED LIST: ALLO300T2 PO; ASPI-543 PO; CAR125T OR; HYDR-4833 PO; INSLANTI SC; MONT10TA42 PO; OXCA600T3 PO; PANT40TA2 PO; PRAV20TA3 PO
[2021-03-15 11:33] LABS: Basophils # (auto) 0.1 10 ^3/uL (0-0.2); Basophils % (auto) 0.6 % (0.0-2.0); Eosinophils # (auto) 0.1 10 ^3/uL (0-0.8); Eosinophils % (auto) 0.8 % (0.0-7.0); Hematocrit 39.5 % (41.0-53.0); Lymphocytes # (auto) 1.5 10 ^3/uL (0.4-5.4); Lymphocytes % (auto) 16.1 % (10.0-50.0); Mean Corpuscular Hemoglobin 31.5 pg (28.0-32.0); Mean Corpuscular Hgb Conc. 35.4 g/dL (32.0-36.0); Mean Corpuscular Volume 88.9 fL (80.0-100.0); Monocytes # (auto) 0.3 10 ^3/uL (0-1.3); Monocytes % (auto) 3.6 % (0.0-12.0); Neutrophils # (auto) 7.1 10 ^3/uL (1.6-8.6); Neutrophils % (auto) 78.9 % (37.0-80.0); Platelet Count (auto) 273 10^3/uL (140-450); Red Blood Cells 4.44 10^6/uL (4.5-5.90); Red Cell Distribution Width 13.3 % (11.8-14.3)
[2021-03-15 11:49] LABS: Albumin 3.8 g/dL (3.4-5.0); Calcium 8.3 mg/dL (8.5-10.1); Potassium 3.8 mmol/L (3.5-5.1)
[2021-03-15 11:53] LABS: BUN/Creatinine Ratio 11.1; Bilirubin, Total 0.4 mg/dL (0.2-1.0); Total Protein 7.2 g/dL (6.4-8.2)
[2021-03-15 14:23] VITALS: BP 152/85
== END 2021-03-15 14:25 | disposition home or self-care (01) ==
LOC: ER 11:08
DX: K57.30 Diverticulosis of large intestine without perforation or abscess without bleeding (principal); E11.65 Type 2 diabetes mellitus with hyperglycemia; I25.10 Atherosclerotic heart disease of native coronary artery without angina pectoris; K21.9 Gastro-esophageal reflux disease without esophagitis; M10.9 Gout, unspecified; E78.5 Hyperlipidemia, unspecified; I10 Essential (primary) hypertension; I25.2 Old myocardial infarction; Z95.1 Presence of aortocoronary bypass graft; Z87.891 Personal history of nicotine dependence; Z79.4 Long term (current) use of insulin; Z79.82 Long term (current) use of aspirin; Z79.899 Other long term (current) drug therapy; Z88.8 Allergy status to other drugs, medicaments and biological substances
CPT/HCPCS: 36415; 74176; 80053; 85025; 85049

== ENCOUNTER 2021-05-03 12:17 | Emergency (ER) | payer BC ==
[~2021-05-03] VITALS: Ht 167.6 cm; Wt 75.3 kg
[2021-05-03 13:26] LABS: Basophils # (auto) 0 10 ^3/uL (0-0.2); Basophils % (auto) 0.6 % (0.0-2.0); Eosinophils # (auto) 0.1 10 ^3/uL (0-0.8); Eosinophils % (auto) 1.1 % (0.0-7.0); Hemoglobin 14.4 g/dL (13.5-17.5); Lymphocytes # (auto) 1.8 10 ^3/uL (0.4-5.4); Lymphocytes % (auto) 25.7 % (10.0-50.0); Mean Corpuscular Hemoglobin 30.7 pg (28.0-32.0); Mean Corpuscular Hgb Conc. 34.2 g/dL (32.0-36.0); Mean Corpuscular Volume 89.9 fL (80.0-100.0); Monocytes # (auto) 0.4 10 ^3/uL (0-1.3); Neutrophils # (auto) 4.6 10 ^3/uL (1.6-8.6); Neutrophils % (auto) 66.6 % (37.0-80.0); Nucleated Red Blood Cells % 0.1 %; Red Blood Cells 4.67 10^6/uL (4.5-5.90); Red Cell Distribution Width 13.7 % (11.8-14.3); White Blood Cell 6.9 10^3/uL (4.4-10.8)
[2021-05-03 13:55] LABS: Potassium 4.1 mmol/L (3.5-5.1)
[2021-05-03 14:02] LABS: Albumin 3.4 g/dL (3.4-5.0); BUN/Creatinine Ratio 13.7; Bilirubin, Total 0.4 mg/dL (0.2-1.0); Calcium 8.6 mg/dL (8.5-10.1); Total Protein 7.3 g/dL (6.4-8.2)
[2021-05-03 14:20] LABS: Urine Bacteria FEW /hpf (None Seen); Urine Blood Negative /uL (Negative); Urine Specific Gravity 1.018 (1.001-1.035); Urine WBC 1 /hpf (0 - 3)
[2021-05-03 14:43] VITALS: BP 162/68
== END 2021-05-03 14:43 | disposition home or self-care (01) ==
LOC: ER 12:17
DX: R10.31 Right lower quadrant pain (principal); E11.9 Type 2 diabetes mellitus without complications; K21.9 Gastro-esophageal reflux disease without esophagitis; E78.5 Hyperlipidemia, unspecified; Z87.891 Personal history of nicotine dependence; Z87.442 Personal history of urinary calculi
CPT/HCPCS: 36415; 74176; 80053; 81001; 83690; 85025

== ENCOUNTER 2023-07-10 20:10 | Inpatient (IN) | payer BC ==
[~2023-07-10] VITALS: Ht 167.6 cm; Wt 74.8 kg
[~2023-07-10 20:10] MED LIST changes: +ATO40T PO; +CLOP75TA70 PO; +LISI20TA56 PO; +MONT-8 PO; -MONT10TA42 PO; +OXCA300T4 PO; -OXCA600T3 PO; -PRAV20TA3 PO; +TAMS-35 PO
[2023-07-10 20:38] LABS: Basophils # (auto) 0.1 10 ^3/uL (0-0.2); Basophils % (auto) 0.9 % (0.0-2.0); Eosinophils # (auto) 0 10 ^3/uL (0-0.8); Eosinophils % (auto) 0.4 % (0.0-7.0); Hematocrit 48.5 % (41.0-53.0); Hemoglobin 16.5 g/dL (13.5-17.5); Lymphocytes # (auto) 1.7 10 ^3/uL (0.4-5.4); Lymphocytes % (auto) 22.2 % (10.0-50.0); Mean Corpuscular Hgb Conc. 34.1 g/dL (32.0-36.0); Mean Corpuscular Volume 90.8 fL (80.0-100.0); Monocytes # (auto) 0.5 10 ^3/uL (0-1.3); Monocytes % (auto) 7.1 % (0.0-12.0); Neutrophils # (auto) 5.3 10 ^3/uL (1.6-8.6); Neutrophils % (auto) 69.4 % (37.0-80.0); Red Blood Cells 5.34 10^6/uL (4.5-5.90); Red Cell Distribution Width 13.8 % (11.8-14.3); White Blood Cell 7.7 10^3/uL (4.4-10.8)
[2023-07-10] MEDS ORDERED: cloNIDine HCL 0.1 MG TAB PO ONE (20:45)
[2023-07-10 20:58] LABS: Alanine Aminotransferase 11 U/L (7-40); Albumin 5.1 g/dL (3.2-4.8); Alkaline Phosphatase 115 U/L (46-116); Anion Gap 10 (5-15); Aspartate Aminotransferase 11 U/L (13-40); BUN/Creatinine Ratio 7.5 (10.0-20.0); Bilirubin, Total 0.6 mg/dL (0.2-1.0); Blood Urea Nitrogen 7 mg/dL (9-23); Calcium 9.7 mg/dL (8.7-10.4); Carbon Dioxide 23 mmol/L (20-30); Chloride 97 mmol/L (98-107); Glucose 181 mg/dL (74-106); Magnesium 2.2 mg/dL (1.6-2.6); Potassium 3.9 mmol/L (3.5-5.1); Sodium 130 mmol/L (136-145); Total Protein 8.1 g/dL (5.7-8.2)
[2023-07-10 21:11] LABS: INR 1.03 (0.9-1.15); Partial Thromboplastin Time 27.1 SEC (24.5-34.5); Prothrombin Time 10.8 sec (9.3-11.8)
[2023-07-10 23:39] VITALS: PULSE 59; RESP 18; O2SAT 95
[2023-07-11] MEDS ORDERED: ONDANSETRON HCL 4 MG/2 ML VIAL IV ONE (01:00)
[2023-07-11] MEDS ORDERED: MORPHINE SULFATE 4 MG/ML SYR/VIAL IV ONE (01:00)
[2023-07-11] MEDS ORDERED: ASPirin 325 MG TAB PO ONE (01:00)
[2023-07-11] MEDS ORDERED: hydrALAZINE HCL 20 MG/ML VL IV PRN (01:45)
[2023-07-11] MEDS ORDERED: HYDROcodone-ACET 5/325MG TAB PO PRN (01:45)
[2023-07-11] MEDS ORDERED: DEXTROSE (50%) 50ML SYRG IV PRN (01:45)
[2023-07-11] MEDS ORDERED: DOCUSATE SOD 100 MG CAP PO PRN (01:45)
[2023-07-11] MEDS ORDERED: ACETAMINOPHEN 325 MG TAB PO PRN (01:45)
[2023-07-11] MEDS: SODIUM CHLORIDE 0.9% 1,000 ML IV SCH ×2 (02:20→18:25)
[2023-07-11] MEDS ORDERED: MORPHINE SULFATE INJ 2 MG/ml SYRG IV PRN (03:15)
[2023-07-11] MEDS ORDERED: NITROGLYCERIN 0.4 MG SL TAB SL PRN (03:15)
[2023-07-11 05:22] LABS: Basophils # (auto) 0 10 ^3/uL (0-0.2); Basophils % (auto) 0.3 % (0.0-2.0); Eosinophils # (auto) 0 10 ^3/uL (0-0.8); Eosinophils % (auto) 0.2 % (0.0-7.0); Hematocrit 45.3 % (41.0-53.0); Hemoglobin 15.5 g/dL (13.5-17.5); Lymphocytes # (auto) 1.6 10 ^3/uL (0.4-5.4); Lymphocytes % (auto) 15.1 % (10.0-50.0); Mean Corpuscular Hemoglobin 31.3 pg (28.0-32.0); Mean Corpuscular Hgb Conc. 34.3 g/dL (32.0-36.0); Mean Corpuscular Volume 91.2 fL (80.0-100.0); Monocytes # (auto) 0.7 10 ^3/uL (0-1.3); Neutrophils # (auto) 8.3 10 ^3/uL (1.6-8.6); Neutrophils % (auto) 77.4 % (37.0-80.0); Nucleated Red Blood Cells % 0.2 %; Red Blood Cells 4.96 10^6/uL (4.5-5.90); Red Cell Distribution Width 13.4 % (11.8-14.3); White Blood Cell 10.7 10^3/uL (4.4-10.8)
[2023-07-11 05:38] LABS: Alanine Aminotransferase 10 U/L (7-40); Albumin 4.6 g/dL (3.2-4.8); Alkaline Phosphatase 102 U/L (46-116); Anion Gap 8 (5-15); Aspartate Aminotransferase 11 U/L (13-40); BUN/Creatinine Ratio 9.2 (10.0-20.0); Blood Urea Nitrogen 11 mg/dL (9-23); Calcium 9.4 mg/dL (8.7-10.4); Carbon Dioxide 26 mmol/L (20-30); Chloride 98 mmol/L (98-107); Glucose 140 mg/dL (74-106); Potassium 4.3 mmol/L (3.5-5.1); Sodium 132 mmol/L (136-145)
[2023-07-11 05:39] LABS: Bilirubin, Total 0.5 mg/dL (0.2-1.0); Total Protein 7.3 g/dL (5.7-8.2)
[2023-07-11] MEDS: ACCU-CHEK COMFORT CURVE STRIP VI SCH ×4 (07:04→21:40)
[2023-07-11] MEDS: InsuLIN REG 1unit/0.01ml Soln (100units/ml) SC SCH ×4 (07:11→22:44)
[2023-07-11] MEDS: MORPHINE SULFATE INJ 2 MG/ml SYRG IV PRN ×2 (07:12→14:24)
[2023-07-11] MEDS: ONDANSETRON HCL 4 MG/2 ML VIAL IV PRN ×3 (07:12→22:39)
[2023-07-11 07:50] VITALS: PULSE 51; RESP 20; O2SAT 96
[2023-07-11] MEDS: METOCLOPRAMIDE HCL 5MG/ml INJ 2ml VIAL IV PRN ×2 (08:29→19:13)
[2023-07-11 09:31] LABS: Urine Bacteria NONE SEEN /hpf (None Seen); Urine Blood Negative /uL (Negative); Urine Clarity Clear (Clear); Urine Color Yellow (Yellow); Urine Hyaline Cast FEW /lpf (0 - 2); Urine Mucus FEW (None Seen); Urine Protein, UAD 3+ (Negative); Urine Specific Gravity 1.024 (1.001-1.035); Urine Urobilinogen Normal (Negative); Urine WBC 5 /hpf (0 - 3)
[2023-07-11] MEDS: FAMOTIDINE (10MG/ML) 2ML VL IV SCH ×2 (10:18→22:39)
[2023-07-11] MEDS: ASPirin 81 mg TAB PO SCH (10:19)
[2023-07-11] MEDS: CLOPIDOGREL BISULFATE 75 MG TAB PO SCH (10:19)
[2023-07-11] MEDS: LISINOPRIL 20 MG TAB PO SCH (10:19)
[2023-07-11 19:40] VITALS: PULSE 88; RESP 16; O2SAT 98
[2023-07-11] MEDS ORDERED: amLODIPine BESYLATE 5 MG TAB PO ONE (20:00)
[2023-07-11] MEDS ORDERED: hydrALAZINE HCL 20 MG/ML VL IV ONE ×2 (20:00)
[2023-07-11] MEDS ORDERED: cloNIDine 0.2 mg/24hr 7DAY PATCH TD PRN (22:30)
[2023-07-11] MEDS ORDERED: cloNIDine HCL 0.1 MG TAB ONE (22:38)
[2023-07-11] MEDS: ATORVASTATIN 20 MG TAB PO SCH (22:39)
[2023-07-12] VITALS (9 sets, daily range): BP systolic 124–185; BP diastolic 74–110; PULSE 64–93; RESP 16–20; TEMP 98.1–98.7; O2SAT 94–99
[2023-07-12] MEDS: cloNIDine HCL 0.1 MG TAB PO PRN ×3 (01:30→22:25)
[2023-07-12] MEDS: MORPHINE SULFATE INJ 2 MG/ml SYRG IV PRN ×2 (01:32→10:39)
[2023-07-12] MEDS ORDERED: HYDR-4297 PO (02:26)
[2023-07-12] MEDS ORDERED: HYDR-4902 PO (02:26)
[2023-07-12] MEDS ORDERED: SUCR1TAB22 OR (02:26)
[2023-07-12] MEDS ORDERED: NIFE1TAB30 PO (02:26)
[2023-07-12] MEDS ORDERED: PRAV20TA3 PO (02:26)
[2023-07-12] MEDS ORDERED: GABA-1308 PO (02:26)
[2023-07-12] MEDS ORDERED: INSLANTI SC (02:26)
[2023-07-12] MEDS ORDERED: METO-158 PO (02:26)
[2023-07-12] MEDS ORDERED: LISI20TA56 PO (02:26)
[2023-07-12] MEDS ORDERED: OXCA300T4 PO (02:26)
[2023-07-12] MEDS ORDERED: ALLO300T2 PO (02:26)
[2023-07-12] MEDS: InsuLIN REG 1unit/0.01ml Soln (100units/ml) SC SCH ×4 (06:33→21:39)
[2023-07-12] MEDS: ACCU-CHEK COMFORT CURVE STRIP VI SCH ×4 (06:33→21:41)
[2023-07-12 06:41] LABS: Basophils # (auto) 0 10 ^3/uL (0-0.2); Basophils % (auto) 0.2 % (0.0-2.0); Eosinophils # (auto) 0 10 ^3/uL (0-0.8); Hematocrit 44.5 % (41.0-53.0); Hemoglobin 14.9 g/dL (13.5-17.5); Lymphocytes % (auto) 23.6 % (10.0-50.0); Mean Corpuscular Hemoglobin 30.8 pg (28.0-32.0); Mean Corpuscular Hgb Conc. 33.4 g/dL (32.0-36.0); Monocytes # (auto) 0.9 10 ^3/uL (0-1.3); Monocytes % (auto) 10.8 % (0.0-12.0); Neutrophils # (auto) 5.4 10 ^3/uL (1.6-8.6); Neutrophils % (auto) 65.4 % (37.0-80.0); Nucleated Red Blood Cells % 0.1 %; Red Blood Cells 4.83 10^6/uL (4.5-5.90); White Blood Cell 8.3 10^3/uL (4.4-10.8)
[2023-07-12 06:54] LABS: Albumin 4.2 g/dL (3.2-4.8); Alkaline Phosphatase 84 U/L (46-116); Aspartate Aminotransferase 25 U/L (13-40); BUN/Creatinine Ratio 9.8 (10.0-20.0); Bilirubin, Total 0.5 mg/dL (0.2-1.0); Blood Urea Nitrogen 11 mg/dL (9-23); Chloride 103 mmol/L (98-107); Glucose 132 mg/dL (74-106); Sodium 135 mmol/L (136-145)
[2023-07-12 06:55] LABS: Total Protein 6.6 g/dL (5.7-8.2)
[2023-07-12 06:56] LABS: Anion Gap 9 (5-15); Carbon Dioxide 23 mmol/L (20-30)
[2023-07-12 06:59] LABS: Alanine Aminotransferase < 9 U/L (7-40)
[2023-07-12 09:26] LABS: Triglycerides 110 mg/dL (< 150)
[2023-07-12 09:27] LABS: LDL Cholesterol 75 mg/dL (< 100)
[2023-07-12 09:28] LABS: Cholesterol 140 mg/dL (< 200); HDL Cholesterol 41 mg/dL (40-59)
[2023-07-12] MEDS: ASPirin 81 mg TAB PO SCH (10:36)
[2023-07-12] MEDS: LISINOPRIL 20 MG TAB PO SCH (10:36)
[2023-07-12] MEDS: CLOPIDOGREL BISULFATE 75 MG TAB PO SCH (10:37)
[2023-07-12] MEDS: FAMOTIDINE (10MG/ML) 2ML VL IV SCH ×2 (10:37→21:39)
[2023-07-12] MEDS: SODIUM CHLORIDE 0.9% 1,000 ML IV SCH (14:48)
[2023-07-12] MEDS: NIFEdipine ER 30 MG TAB PO SCH (17:30)
[2023-07-12] MEDS: ATORVASTATIN 20 MG TAB PO SCH (21:37)
[2023-07-13] MEDS: SODIUM CHLORIDE 0.9% 1,000 ML IV SCH (03:45)
[2023-07-13 05:00] VITALS: BP 119/78; PULSE 86; RESP 18; TEMP 98.2; O2SAT 95
[2023-07-13] MEDS: InsuLIN REG 1unit/0.01ml Soln (100units/ml) SC SCH ×2 (06:06→11:36)
[2023-07-13] MEDS: ACCU-CHEK COMFORT CURVE STRIP VI SCH ×2 (06:07→11:16)
[2023-07-13 07:47] LABS: Basophils # (auto) 0.1 10 ^3/uL (0-0.2); Basophils % (auto) 0.9 % (0.0-2.0); Eosinophils # (auto) 0.1 10 ^3/uL (0-0.8); Eosinophils % (auto) 0.6 % (0.0-7.0); Hematocrit 44.9 % (41.0-53.0); Hemoglobin 14.5 g/dL (13.5-17.5); Lymphocytes # (auto) 1.6 10 ^3/uL (0.4-5.4); Lymphocytes % (auto) 18.7 % (10.0-50.0); Mean Corpuscular Hemoglobin 30.4 pg (28.0-32.0); Mean Corpuscular Hgb Conc. 32.3 g/dL (32.0-36.0); Mean Corpuscular Volume 94.1 fL (80.0-100.0); Monocytes # (auto) 0.9 10 ^3/uL (0-1.3); Monocytes % (auto) 10.2 % (0.0-12.0); Neutrophils # (auto) 5.9 10 ^3/uL (1.6-8.6); Neutrophils % (auto) 69.6 % (37.0-80.0); Nucleated Red Blood Cells % 0.2 %; Red Blood Cells 4.78 10^6/uL (4.5-5.90); Red Cell Distribution Width 13.9 % (11.8-14.3); White Blood Cell 8.5 10^3/uL (4.4-10.8)
[2023-07-13 07:59] LABS: Chloride 106 mmol/L (98-107); Potassium 3.9 mmol/L (3.5-5.1); Sodium 137 mmol/L (136-145)
[2023-07-13 08:00] VITALS: PULSE 77; PULSE 78; RESP 18; O2SAT 96
[2023-07-13 08:00] LABS: Anion Gap 8 (5-15); Calcium 9.1 mg/dL (8.5-10.1); Carbon Dioxide 23 mmol/L (20-30)
[2023-07-13 08:05] LABS: BUN/Creatinine Ratio 13.4 (10.0-20.0); Blood Urea Nitrogen 13 mg/dL (9-23); Glucose 115 mg/dL (74-106)
[2023-07-13 09:00] VITALS: BP 157/81; PULSE 72; RESP 20; TEMP 98.1; O2SAT 91
[2023-07-13] MEDS ORDERED: LISINOPRIL 20 MG TAB PO SCH (10:00)
[2023-07-13] MEDS ORDERED: METO-289 PO (11:13)
[2023-07-13] MEDS ORDERED: NIFE90TA75 PO (11:13)
[2023-07-13] MEDS ORDERED: LISI40TA16 PO (11:13)
[2023-07-13] MEDS: FAMOTIDINE (10MG/ML) 2ML VL IV SCH (11:15)
[2023-07-13] MEDS: ASPirin 81 mg TAB PO SCH (11:15)
[2023-07-13] MEDS: NIFEdipine ER 30 MG TAB PO SCH (11:16)
[2023-07-13] MEDS: CLOPIDOGREL BISULFATE 75 MG TAB PO SCH (11:16)
[2023-07-13] MEDS: MORPHINE SULFATE INJ 2 MG/ml SYRG IV PRN (11:17)
[2023-07-13 13:00] VITALS: BP 151/89; PULSE 72; RESP 19; TEMP 98; O2SAT 95
[2023-07-13 16:31] VITALS: BP 145/74; PULSE 72; RESP 19; TEMP 98; O2SAT 95
[2023-07-13 17:00] VITALS: BP 142/86; PULSE 98; RESP 19; TEMP 98; O2SAT 97
== END 2023-07-13 17:25 | disposition home or self-care (01) | DRG 305 ==
LOC: ER 20:16 → TELE 07-11 03:03 → TELE-WESTW 07-11 22:25 → TELE 07-11 22:47 → TELE-WESTW 07-11 23:42
PROVIDERS: ADMIT Nurse Practitioner Family; ATTEND Internal Medicine
DX: I16.0 Hypertensive urgency (principal); E87.1 Hypo-osmolality and hyponatremia; E11.65 Type 2 diabetes mellitus with hyperglycemia; I10 Essential (primary) hypertension; E66.9 Obesity, unspecified; I25.10 Atherosclerotic heart disease of native coronary artery without angina pectoris; E78.5 Hyperlipidemia, unspecified; K21.9 Gastro-esophageal reflux disease without esophagitis; M10.9 Gout, unspecified; E87.8 Other disorders of electrolyte and fluid balance, not elsewhere classified; R79.89 Other specified abnormal findings of blood chemistry; Z83.3 Family history of diabetes mellitus; Z88.7 Allergy status to serum and vaccine; Z79.899 Other long term (current) drug therapy; Z79.82 Long term (current) use of aspirin; Z79.4 Long term (current) use of insulin; Z95.1 Presence of aortocoronary bypass graft; Z82.49 Family history of ischemic heart disease and other diseases of the circulatory system; Z87.891 Personal history of nicotine dependence; Z87.442 Personal history of urinary calculi; Z98.61 Coronary angioplasty status; Z68.26 Body mass index [BMI] 26.0-26.9, adult
CPT/HCPCS: 36415; 71045; 80048; 80053; 80061; 81001; 82962; 83036; 83735; 83880; 84443; 84484; 85025; 85610; 85730; 93005; G0378; J1815; J2405; J3490

== ENCOUNTER 2024-06-23 18:01 | Emergency (ER) | payer BC ==
[~2024-06-23] VITALS: Ht 167.6 cm; Wt 73.8 kg
[~2024-06-23 18:01] MED LIST changes: -ATO40T PO; +ATOR-507 PO; -CAR125T OR; +GABA-1308 PO; -HYDR-4833 PO; +HYDR-4902 PO; +LISI40TA16 PO; +METO-289 PO; +NIFE1TAB30 PO; +NIFE90TA75 PO; +SUCR1TAB31 OR
[2024-06-23] MEDS: LABETALOL HCL 20 MG/4 ML VL IV ONE (19:00)
[2024-06-23 19:40] VITALS: TEMP 97.7
[2024-06-23 20:00] VITALS: PULSE 48; RESP 17; O2SAT 96
[2024-06-23] MEDS: hydrALAZINE HCL 20 MG/ML VL IV ONE (20:24)
[2024-06-23 20:34] LABS: Basophils # (auto) 0.1 10 ^3/uL (0-0.2); Eosinophils # (auto) 0.3 10 ^3/uL (0-0.8); Eosinophils % (auto) 4.5 % (0.0-7.0); Hemoglobin 14.5 g/dL (13.5-17.5); Lymphocytes # (auto) 1.9 10 ^3/uL (0.4-5.4); Lymphocytes % (auto) 33.3 % (10.0-50.0); Mean Corpuscular Hemoglobin 31.7 pg (28.0-32.0); Mean Corpuscular Hgb Conc. 34.5 g/dL (32.0-36.0); Mean Corpuscular Volume 91.9 fL (80.0-100.0); Monocytes # (auto) 0.5 10 ^3/uL (0-1.3); Monocytes % (auto) 8.8 % (0.0-12.0); Neutrophils % (auto) 52.4 % (37.0-80.0); Nucleated Red Blood Cells % 0.2 %; Platelet Count (auto) 265 10^3/uL (140-450); Red Blood Cells 4.57 10^6/uL (4.5-5.90); Red Cell Distribution Width 13.8 % (11.8-14.3); White Blood Cell 5.8 10^3/uL (4.4-10.8)
[2024-06-23 20:49] LABS: Alanine Aminotransferase 12 U/L (7-40); Albumin 4.2 g/dL (3.2-4.8); Alkaline Phosphatase 110 U/L (46-116); Anion Gap 7 (5-15); Aspartate Aminotransferase < 8 U/L (13-40); BUN/Creatinine Ratio 14.9 (10.0-20.0); Blood Urea Nitrogen 14 mg/dL (9-23); Calcium 9.1 mg/dL (8.7-10.4); Carbon Dioxide 24 mmol/L (20-31); Chloride 108 mmol/L (98-107); Glucose 155 mg/dL (74-106); Magnesium 2.2 mg/dL (1.6-2.6); Potassium 3.9 mmol/L (3.5-5.1); Sodium 139 mmol/L (136-145)
[2024-06-23 20:50] LABS: Bilirubin, Total 0.2 mg/dL (0.2-1.0); Creatine Kinase IFCC 71 U/L (46-171); Total Protein 6.7 g/dL (5.7-8.2)
[2024-06-23 21:00] VITALS: BP 150/73; PULSE 55; RESP 17; O2SAT 95
== END 2024-06-23 22:22 | disposition left against medical advice (07) ==
LOC: ER 18:03
DX: S09.8XXA Other specified injuries of head, initial encounter (principal); R29.6 Repeated falls; R26.81 Unsteadiness on feet; I10 Essential (primary) hypertension; E11.9 Type 2 diabetes mellitus without complications; I25.10 Atherosclerotic heart disease of native coronary artery without angina pectoris; K21.9 Gastro-esophageal reflux disease without esophagitis; M10.9 Gout, unspecified; I25.2 Old myocardial infarction; E78.5 Hyperlipidemia, unspecified; Z53.29 Procedure and treatment not carried out because of patient's decision for other reasons; Z98.890 Other specified postprocedural states; Z87.891 Personal history of nicotine dependence; Z79.899 Other long term (current) drug therapy; Z79.82 Long term (current) use of aspirin; Z88.8 Allergy status to other drugs, medicaments and biological substances; W18.39XA Other fall on same level, initial encounter; Y93.89 Activity, other specified; Y92.89 Other specified places as the place of occurrence of the external cause; Y99.8 Other external cause status
CPT/HCPCS: 36415; 70450; 71045; 80053; 82550; 82962; 83605; 83735; 83880; 84484; 85025; 93005; 96374; 99285; J0360